=== PATIENT | male | born 1975 | race African-American/Black ===

== ENCOUNTER 2023-03-21 15:35 | Inpatient (IN) | payer OTHER ==
[2023-03-21 16:46] VITALS: BMI 20.9
[2023-03-21] MEDS ORDERED: IBUPROFEN 600 MG TABLET (FP) PO PRN (19:54)
[2023-03-21] MEDS ORDERED: NICOTINE 10 MG CARTRIDGE (INHALER) IH PRN (19:54)
[2023-03-21] MEDS ORDERED: IBUPROFEN 400 MG TABLET (FP) PO PRN (19:54)
[2023-03-21] MEDS ORDERED: NALOXONE HCL 0.4 MG/ML VIAL IM PRN (19:54)
[2023-03-21] MEDS ORDERED: MAG HYDROX/AL HYDROX/SIMETH 30 ML UNIT-DOSE CUP PO PRN (19:54)
[2023-03-21] MEDS ORDERED: BENZONATATE 200 MG CAPSULE PO PRN (19:54)
[2023-03-21] MEDS ORDERED: LOPERAMIDE HCL 2 MG CAPSULE PO PRN (19:54)
[2023-03-21] MEDS ORDERED: NALOXONE HCL (KLOXXADO) 8 MG SPRAY NS PRN (19:54)
[2023-03-21] MEDS ORDERED: guaiFENesin 600 MG TABLET.ER (FP) PO PRN (19:54)
[2023-03-21] MEDS ORDERED: TUBERCULIN PPD 5 TU/0.1ML VIAL ID ONE (20:49)
[2023-03-21] MEDS: COLLOIDAL OATMEAL 1 BAR EACH TP PRN (20:51)
[2023-03-21] MEDS: THIAMINE HCL 100 MG TABLET (FP) PO SCH (21:17)
[2023-03-21] MEDS: MELATONIN 5 MG TABLETS PO SCH (21:17)
[2023-03-22] MEDS: PRENATAL VITAMINS W/ FOLIC ACID TABLET (FP) PO SCH (10:51)
[2023-03-22 11:09] LABS: HEMATOCRIT 39.9 % (35.4-49); HEMOGLOBIN 13.4 GM/dL (11.7-16.9); MCH 31.1 pg (25.7-33.7); MCHC 33.5 g/dl (32.0-35.9); MEAN CELL VOLUME 92.9 fl (80-96); PLATELET COUNT 198 10^3/uL (134-434); RDW 13.8 % (11.9-15.9)
[2023-03-22 11:12] LABS: URINE APPEARANCE CLEAR; URINE BILIRUBIN NEGATIVE (NEGATIVE); URINE COLOR YELLOW; URINE GLUCOSE (UA) NEGATIVE (NEGATIVE); URINE KETONE NEGATIVE (NEGATIVE); URINE LEUK ESTERASE NEGATIVE (NEGATIVE); URINE NITRITE NEGATIVE (NEGATIVE); URINE PROTEIN NEGATIVE (NEGATIVE); URINE UROBILINOGEN 0.2 mg/dL (0.2-1.0)
[2023-03-22 11:13] LABS: POTASSIUM 4.1 mmol/L (3.5-5.1)
[2023-03-22 11:18] LABS: CALCIUM 9.1 mg/dL (8.5-10.1)
[2023-03-22 11:19] LABS: ALBUMIN 3.6 g/dl (3.4-5.0); BLOOD UREA NITROGEN 12.2 mg/dL (7-18)
[2023-03-22 11:24] LABS: BILIRUBIN,TOTAL 1.6 mg/dL (0.2-1); TOT PROT 6.3 g/dl (6.4-8.2)
[2023-03-22 11:58] LABS: SYPHILIS W/ RPR CONF NON-REACTIVE (NONREACTIVE)
[2023-03-22] MEDS: MELATONIN 5 MG TABLETS PO SCH (21:22)
[2023-03-22] MEDS: THIAMINE HCL 100 MG TABLET (FP) PO SCH (21:22)
[2023-03-23] MEDS: cloNIDine HCL 0.1 MG TABLET PO PRN (06:13)
[2023-03-23] MEDS ORDERED: LORATADINE 10 MG TABLET PO PRN (09:44)
[2023-03-23] MEDS: PRENATAL VITAMINS W/ FOLIC ACID TABLET (FP) PO SCH (10:13)
[2023-03-23] MEDS: KETOCONAZOLE 2 % SHAMPOO 120 ML BOTTLE TP SCH (10:46)
[2023-03-23] MEDS: COLLOIDAL OATMEAL 1 BAR EACH TP PRN (10:50)
[2023-03-23] MEDS: MAGNESIUM HYDROX 2400MG/30ML ORAL SUSPENSION 30 ML CUP PO PRN (16:21)
[2023-03-23] MEDS: THIAMINE HCL 100 MG TABLET (FP) PO SCH (21:22)
[2023-03-23] MEDS: MELATONIN 5 MG TABLETS PO SCH (21:23)
[2023-03-24] MEDS: PRENATAL VITAMINS W/ FOLIC ACID TABLET (FP) PO SCH (10:09)
[2023-03-24] MEDS: KETOCONAZOLE 2 % SHAMPOO 120 ML BOTTLE TP SCH (10:10)
[2023-03-24] MEDS: AMMONIUM LACTATE 12% LOTION 225 GM BOTTLE TP PRN (10:11)
[2023-03-24] MEDS: MAGNESIUM HYDROX 2400MG/30ML ORAL SUSPENSION 30 ML CUP PO PRN (10:13)
[2023-03-24] MEDS: THIAMINE HCL 100 MG TABLET (FP) PO SCH (21:16)
[2023-03-24] MEDS: MELATONIN 5 MG TABLETS PO SCH (21:16)
[2023-03-25] MEDS: PRENATAL VITAMINS W/ FOLIC ACID TABLET (FP) PO SCH (09:51)
[2023-03-25] MEDS: KETOCONAZOLE 2 % SHAMPOO 120 ML BOTTLE TP SCH (09:51)
[2023-03-25] MEDS: AMMONIUM LACTATE 12% LOTION 225 GM BOTTLE TP PRN (09:52)
[2023-03-25] MEDS: POLYETHYLENE GLYCOL (HEALTHYLAX) 3350 17 GM PACKET PO PRN (09:55)
[2023-03-25] MEDS: THIAMINE HCL 100 MG TABLET (FP) PO SCH (21:19)
[2023-03-25] MEDS: MELATONIN 5 MG TABLETS PO SCH (21:19)
[2023-03-25] MEDS: ACETAMINOPHEN 325 MG TABLET (FP) PO PRN (21:20)
[2023-03-26] MEDS: cloNIDine HCL 0.1 MG TABLET PO PRN (07:10)
[2023-03-26] MEDS: PRENATAL VITAMINS W/ FOLIC ACID TABLET (FP) PO SCH (09:43)
[2023-03-26] MEDS: KETOCONAZOLE 2 % SHAMPOO 120 ML BOTTLE TP SCH (09:44)
[2023-03-26] MEDS: POLYETHYLENE GLYCOL (HEALTHYLAX) 3350 17 GM PACKET PO PRN (14:17)
[2023-03-26] MEDS: ACETAMINOPHEN 325 MG TABLET (FP) PO PRN (16:13)
[2023-03-26] MEDS: hydrOXYzine PAMOATE 25 MG CAPSULE (FP) PO PRN (16:17)
[2023-03-26] MEDS: MELATONIN 5 MG TABLETS PO SCH (21:23)
[2023-03-26] MEDS: THIAMINE HCL 100 MG TABLET (FP) PO SCH (21:23)
[2023-03-27] MEDS: PRENATAL VITAMINS W/ FOLIC ACID TABLET (FP) PO SCH (09:56)
[2023-03-27] MEDS: POLYETHYLENE GLYCOL (HEALTHYLAX) 3350 17 GM PACKET PO PRN (09:57)
[2023-03-27] MEDS: KETOCONAZOLE 2 % SHAMPOO 120 ML BOTTLE TP SCH (09:58)
[2023-03-27] MEDS ORDERED: LIDOCAINE 5% TOPICAL PATCH TP SCH (15:30)
[2023-03-27] MEDS: LIDOCAINE PATCH REMOVAL MC SCH (21:16)
[2023-03-27] MEDS: THIAMINE HCL 100 MG TABLET (FP) PO SCH (21:16)
[2023-03-27] MEDS: MELATONIN 5 MG TABLETS PO SCH (21:16)
[2023-03-28] MEDS: KETOCONAZOLE 2 % SHAMPOO 120 ML BOTTLE TP SCH (10:18)
[2023-03-28] MEDS: PRENATAL VITAMINS W/ FOLIC ACID TABLET (FP) PO SCH (10:18)
[2023-03-28] MEDS: POLYETHYLENE GLYCOL (HEALTHYLAX) 3350 17 GM PACKET PO PRN (10:19)
[2023-03-28] MEDS: COLLOIDAL OATMEAL 1 BAR EACH TP PRN (12:42)
[2023-03-28] MEDS: LIDOCAINE PATCH REMOVAL MC SCH (21:10)
[2023-03-28] MEDS: THIAMINE HCL 100 MG TABLET (FP) PO SCH (21:10)
[2023-03-28] MEDS: MELATONIN 5 MG TABLETS PO SCH (21:10)
[2023-03-29] MEDS: PRENATAL VITAMINS W/ FOLIC ACID TABLET (FP) PO SCH (09:35)
[2023-03-29] MEDS: POLYETHYLENE GLYCOL (HEALTHYLAX) 3350 17 GM PACKET PO PRN (09:36)
[2023-03-29] MEDS: KETOCONAZOLE 2 % SHAMPOO 120 ML BOTTLE TP SCH (09:37)
[2023-03-29] MEDS: THIAMINE HCL 100 MG TABLET (FP) PO SCH (21:07)
[2023-03-29] MEDS: MELATONIN 5 MG TABLETS PO SCH (21:07)
[2023-03-29] MEDS: LIDOCAINE PATCH REMOVAL MC SCH (21:07)
[2023-03-29] MEDS: hydrOXYzine PAMOATE 25 MG CAPSULE (FP) PO PRN (21:07)
[2023-03-30] MEDS: PRENATAL VITAMINS W/ FOLIC ACID TABLET (FP) PO SCH (10:11)
[2023-03-30] MEDS: KETOCONAZOLE 2 % SHAMPOO 120 ML BOTTLE TP SCH (10:12)
[2023-03-30] MEDS: POLYETHYLENE GLYCOL (HEALTHYLAX) 3350 17 GM PACKET PO PRN (10:15)
[2023-03-30] MEDS: AMMONIUM LACTATE 12% LOTION 225 GM BOTTLE TP PRN (10:16)
[2023-03-30] MEDS: THIAMINE HCL 100 MG TABLET (FP) PO SCH (21:13)
[2023-03-30] MEDS: LIDOCAINE PATCH REMOVAL MC SCH (21:13)
[2023-03-30] MEDS: MELATONIN 5 MG TABLETS PO SCH (21:13)
[2023-03-31] MEDS: ACETAMINOPHEN 325 MG TABLET (FP) PO PRN (05:44)
[2023-03-31] MEDS: KETOCONAZOLE 2 % SHAMPOO 120 ML BOTTLE TP SCH (09:48)
[2023-03-31] MEDS: PRENATAL VITAMINS W/ FOLIC ACID TABLET (FP) PO SCH (09:48)
[2023-03-31] MEDS: POLYETHYLENE GLYCOL (HEALTHYLAX) 3350 17 GM PACKET PO PRN (09:48)
[2023-03-31] MEDS: THIAMINE HCL 100 MG TABLET (FP) PO SCH (21:18)
[2023-03-31] MEDS: MELATONIN 5 MG TABLETS PO SCH (21:18)
[2023-03-31] MEDS: LIDOCAINE PATCH REMOVAL MC SCH (21:19)
[2023-04-01] MEDS: KETOCONAZOLE 2 % SHAMPOO 120 ML BOTTLE TP SCH (09:43)
[2023-04-01] MEDS: PRENATAL VITAMINS W/ FOLIC ACID TABLET (FP) PO SCH (09:43)
[2023-04-01] MEDS: POLYETHYLENE GLYCOL (HEALTHYLAX) 3350 17 GM PACKET PO PRN (09:44)
[2023-04-01] MEDS: LIDOCAINE PATCH REMOVAL MC SCH (21:10)
[2023-04-01] MEDS: THIAMINE HCL 100 MG TABLET (FP) PO SCH (21:10)
[2023-04-01] MEDS: MELATONIN 5 MG TABLETS PO SCH (21:11)
[2023-04-02] MEDS: PRENATAL VITAMINS W/ FOLIC ACID TABLET (FP) PO SCH (10:02)
[2023-04-02] MEDS: POLYETHYLENE GLYCOL (HEALTHYLAX) 3350 17 GM PACKET PO PRN (10:07)
[2023-04-02] MEDS: KETOCONAZOLE 2 % SHAMPOO 120 ML BOTTLE TP SCH (10:08)
[2023-04-02] MEDS: THIAMINE HCL 100 MG TABLET (FP) PO SCH (21:04)
[2023-04-02] MEDS: MELATONIN 5 MG TABLETS PO SCH (21:05)
[2023-04-02] MEDS: LIDOCAINE PATCH REMOVAL MC SCH (21:05)
[2023-04-03] MEDS: KETOCONAZOLE 2 % SHAMPOO 120 ML BOTTLE TP SCH (09:53)
[2023-04-03] MEDS: PRENATAL VITAMINS W/ FOLIC ACID TABLET (FP) PO SCH (09:53)
[2023-04-03] MEDS: POLYETHYLENE GLYCOL (HEALTHYLAX) 3350 17 GM PACKET PO PRN (09:53)
[2023-04-03] MEDS ORDERED: AZITHROMYCIN 250 MG TABLET PO ONE (10:59)
[2023-04-03] MEDS ORDERED: KETOCONAZOLE 2 % SHAMPOO 120 ML BOTTLE TP SCH (11:01)
[2023-04-03] MEDS: SODIUM CHLORIDE NASAL SPRAY 44 ML BOTTLE NS PRN ×3 (12:08→21:14)
[2023-04-03] MEDS: BENZOCAINE/MENTHOL (CHLORASEPTIC ) LOZENGE MM PRN ×2 (16:20→23:13)
[2023-04-03] MEDS: THIAMINE HCL 100 MG TABLET (FP) PO SCH (21:13)
[2023-04-03] MEDS: MELATONIN 5 MG TABLETS PO SCH (21:14)
[2023-04-03] MEDS: LIDOCAINE PATCH REMOVAL MC SCH (21:14)
[2023-04-04] MEDS: cloNIDine HCL 0.1 MG TABLET PO PRN (05:57)
[2023-04-04] MEDS: BENZOCAINE/MENTHOL (CHLORASEPTIC ) LOZENGE MM PRN ×3 (05:58→19:52)
[2023-04-04] MEDS: SODIUM CHLORIDE NASAL SPRAY 44 ML BOTTLE NS PRN ×4 (05:59→21:24)
[2023-04-04] MEDS: PRENATAL VITAMINS W/ FOLIC ACID TABLET (FP) PO SCH (09:53)
[2023-04-04] MEDS: AZITHROMYCIN 250 MG TABLET PO SCH (09:53)
[2023-04-04] MEDS: POLYETHYLENE GLYCOL (HEALTHYLAX) 3350 17 GM PACKET PO PRN (09:55)
[2023-04-04 12:04] LABS: BASO % 0.7 % (0-2.0); EOS % 1.6 % (0-4.5); HEMATOCRIT 40.4 % (35.4-49); HEMOGLOBIN 13.6 GM/dL (11.7-16.9); LYMPH % 27.1 % (8-40); MCH 31.1 pg (25.7-33.7); MCHC 33.7 g/dl (32.0-35.9); MEAN CELL VOLUME 92.5 fl (80-96); MEAN PLT VOLUME 9.5 fl (7.5-11.1); MONO % 13.4 % (3.8-10.2); NEUT % 57.2 % (42.8-82.8); PLATELET COUNT 185 10^3/uL (134-434); RBC 4.37 M/mm3 (4.00-5.60); RDW 13.5 % (11.9-15.9); WHITE BLOOD COUNT 4.5 K/mm3 (4.0-10.0)
[2023-04-04 19:08] LABS: HIV INTERPRETATION NEGATIVE (NEGATIVE)
[2023-04-04] MEDS: THIAMINE HCL 100 MG TABLET (FP) PO SCH (21:22)
[2023-04-04] MEDS: LIDOCAINE PATCH REMOVAL MC SCH (21:22)
[2023-04-04] MEDS: MELATONIN 5 MG TABLETS PO SCH (21:22)
[2023-04-05] MEDS: SODIUM CHLORIDE NASAL SPRAY 44 ML BOTTLE NS PRN ×2 (06:38→21:05)
[2023-04-05] MEDS: BENZOCAINE/MENTHOL (CHLORASEPTIC ) LOZENGE MM PRN ×2 (06:41→21:06)
[2023-04-05] MEDS: COLLOIDAL OATMEAL 1 BAR EACH TP PRN (06:46)
[2023-04-05] MEDS: AZITHROMYCIN 250 MG TABLET PO SCH (09:52)
[2023-04-05] MEDS: PRENATAL VITAMINS W/ FOLIC ACID TABLET (FP) PO SCH (09:52)
[2023-04-05] MEDS: POLYETHYLENE GLYCOL (HEALTHYLAX) 3350 17 GM PACKET PO PRN (09:53)
[2023-04-05] MEDS: THIAMINE HCL 100 MG TABLET (FP) PO SCH (21:05)
[2023-04-05] MEDS: LIDOCAINE PATCH REMOVAL MC SCH (21:05)
[2023-04-05] MEDS: MELATONIN 5 MG TABLETS PO SCH (21:05)
[2023-04-06] MEDS: SODIUM CHLORIDE NASAL SPRAY 44 ML BOTTLE NS PRN ×3 (06:25→21:26)
[2023-04-06] MEDS: BENZOCAINE/MENTHOL (CHLORASEPTIC ) LOZENGE MM PRN ×3 (06:26→21:26)
[2023-04-06] MEDS: AZITHROMYCIN 250 MG TABLET PO SCH (09:45)
[2023-04-06] MEDS: PRENATAL VITAMINS W/ FOLIC ACID TABLET (FP) PO SCH (09:45)
[2023-04-06] MEDS: POLYETHYLENE GLYCOL (HEALTHYLAX) 3350 17 GM PACKET PO PRN (09:46)
[2023-04-06] MEDS: THIAMINE HCL 100 MG TABLET (FP) PO SCH (21:25)
[2023-04-06] MEDS: MELATONIN 5 MG TABLETS PO SCH (21:25)
[2023-04-06] MEDS: LIDOCAINE PATCH REMOVAL MC SCH (21:25)
[2023-04-07] MEDS: PRENATAL VITAMINS W/ FOLIC ACID TABLET (FP) PO SCH (09:53)
[2023-04-07] MEDS: SODIUM CHLORIDE NASAL SPRAY 44 ML BOTTLE NS PRN ×2 (09:55→21:03)
[2023-04-07] MEDS: AZITHROMYCIN 250 MG TABLET PO SCH (09:55)
[2023-04-07] MEDS: POLYETHYLENE GLYCOL (HEALTHYLAX) 3350 17 GM PACKET PO PRN (09:55)
[2023-04-07] MEDS: BENZOCAINE/MENTHOL (CHLORASEPTIC ) LOZENGE MM PRN ×2 (09:56→21:05)
[2023-04-07] MEDS: hydrOXYzine PAMOATE 25 MG CAPSULE (FP) PO PRN (13:46)
[2023-04-07] MEDS: HYDROCORTISONE 1% TOPICAL OINT 30 GM TUBE TP PRN ×2 (14:59→21:04)
[2023-04-07] MEDS: THIAMINE HCL 100 MG TABLET (FP) PO SCH (21:03)
[2023-04-07] MEDS: MELATONIN 5 MG TABLETS PO SCH (21:05)
[2023-04-07] MEDS: LIDOCAINE PATCH REMOVAL MC SCH (21:05)
[2023-04-08] MEDS: hydrOXYzine PAMOATE 25 MG CAPSULE (FP) PO PRN (08:24)
[2023-04-08] MEDS ORDERED: predniSONE 20 MG TABLET (UD) PO ONE (09:17)
[2023-04-08] MEDS: PRENATAL VITAMINS W/ FOLIC ACID TABLET (FP) PO SCH (10:26)
[2023-04-08] MEDS: POLYETHYLENE GLYCOL (HEALTHYLAX) 3350 17 GM PACKET PO PRN (10:27)
[2023-04-08] MEDS: SODIUM CHLORIDE NASAL SPRAY 44 ML BOTTLE NS PRN ×2 (10:27→21:11)
[2023-04-08] MEDS: BENZOCAINE/MENTHOL (CHLORASEPTIC ) LOZENGE MM PRN (10:30)
[2023-04-08] MEDS: HYDROCORTISONE 1% TOPICAL OINT 30 GM TUBE TP PRN ×2 (10:31→21:10)
[2023-04-08] MEDS: THIAMINE HCL 100 MG TABLET (FP) PO SCH (21:09)
[2023-04-08] MEDS: LIDOCAINE PATCH REMOVAL MC SCH (21:09)
[2023-04-08] MEDS: MELATONIN 5 MG TABLETS PO SCH (22:40)
[2023-04-09] MEDS: SODIUM CHLORIDE NASAL SPRAY 44 ML BOTTLE NS PRN (06:31)
[2023-04-09] MEDS: HYDROCORTISONE 1% TOPICAL OINT 30 GM TUBE TP PRN ×2 (09:46→21:21)
[2023-04-09] MEDS: POLYETHYLENE GLYCOL (HEALTHYLAX) 3350 17 GM PACKET PO PRN (09:46)
[2023-04-09] MEDS: PRENATAL VITAMINS W/ FOLIC ACID TABLET (FP) PO SCH (09:46)
[2023-04-09] MEDS ORDERED: predniSONE 10 MG TABLET (UD) PO ONE (10:00)
[2023-04-09] MEDS: THIAMINE HCL 100 MG TABLET (FP) PO SCH (21:20)
[2023-04-09] MEDS: MELATONIN 5 MG TABLETS PO SCH (21:20)
[2023-04-09] MEDS: LIDOCAINE PATCH REMOVAL MC SCH (21:20)
[2023-04-10] MEDS: SODIUM CHLORIDE NASAL SPRAY 44 ML BOTTLE NS PRN ×2 (06:02→10:32)
[2023-04-10] MEDS: COLLOIDAL OATMEAL 1 BAR EACH TP PRN (06:03)
[2023-04-10] MEDS: BENZOCAINE/MENTHOL (CHLORASEPTIC ) LOZENGE MM PRN (06:03)
[2023-04-10] MEDS ORDERED: predniSONE 10 MG TABLET (UD) PO ONE (10:00)
[2023-04-10] MEDS: PRENATAL VITAMINS W/ FOLIC ACID TABLET (FP) PO SCH (10:30)
[2023-04-10] MEDS: POLYETHYLENE GLYCOL (HEALTHYLAX) 3350 17 GM PACKET PO PRN (10:31)
[2023-04-10] MEDS: KETOCONAZOLE 2 % SHAMPOO 120 ML BOTTLE TP PRN (10:35)
[2023-04-10] MEDS: AMMONIUM LACTATE 12% LOTION 225 GM BOTTLE TP PRN (10:36)
[2023-04-10] MEDS: LIDOCAINE PATCH REMOVAL MC SCH (21:25)
[2023-04-10] MEDS: MELATONIN 5 MG TABLETS PO SCH (21:25)
[2023-04-10] MEDS: THIAMINE HCL 100 MG TABLET (FP) PO SCH (21:25)
[2023-04-11] MEDS ORDERED: predniSONE 5 MG TABLET (UD) PO ONE (10:00)
[2023-04-11] MEDS: SODIUM CHLORIDE NASAL SPRAY 44 ML BOTTLE NS PRN ×2 (10:39→21:04)
[2023-04-11] MEDS: PRENATAL VITAMINS W/ FOLIC ACID TABLET (FP) PO SCH (10:39)
[2023-04-11] MEDS: POLYETHYLENE GLYCOL (HEALTHYLAX) 3350 17 GM PACKET PO PRN (10:40)
[2023-04-11] MEDS: MELATONIN 5 MG TABLETS PO SCH (21:01)
[2023-04-11] MEDS: THIAMINE HCL 100 MG TABLET (FP) PO SCH (21:01)
[2023-04-11] MEDS: AMMONIUM LACTATE 12% LOTION 225 GM BOTTLE TP PRN (21:04)
[2023-04-11] MEDS: KETOCONAZOLE 2 % SHAMPOO 120 ML BOTTLE TP PRN (21:05)
[2023-04-11] MEDS: LIDOCAINE PATCH REMOVAL MC SCH (21:33)
[2023-04-12] MEDS: PRENATAL VITAMINS W/ FOLIC ACID TABLET (FP) PO SCH (09:35)
[2023-04-12] MEDS: KETOCONAZOLE 2 % SHAMPOO 120 ML BOTTLE TP PRN (09:36)
[2023-04-12] MEDS: POLYETHYLENE GLYCOL (HEALTHYLAX) 3350 17 GM PACKET PO PRN (09:38)
[2023-04-12] MEDS: SODIUM CHLORIDE NASAL SPRAY 44 ML BOTTLE NS PRN ×2 (09:38→21:23)
[2023-04-12] MEDS: COLLOIDAL OATMEAL 1 BAR EACH TP PRN (10:23)
[2023-04-12] MEDS: HYDROCORTISONE 1% TOPICAL OINT 30 GM TUBE TP PRN (10:38)
[2023-04-12] MEDS: THIAMINE HCL 100 MG TABLET (FP) PO SCH (21:22)
[2023-04-12] MEDS: MELATONIN 5 MG TABLETS PO SCH (21:22)
[2023-04-12] MEDS: LIDOCAINE PATCH REMOVAL MC SCH (21:23)
[2023-04-13] MEDS: KETOCONAZOLE 2 % SHAMPOO 120 ML BOTTLE TP PRN (06:04)
[2023-04-13] MEDS: HYDROCORTISONE 1% TOPICAL OINT 30 GM TUBE TP PRN ×2 (10:19→21:11)
[2023-04-13] MEDS: PRENATAL VITAMINS W/ FOLIC ACID TABLET (FP) PO SCH (10:19)
[2023-04-13] MEDS: THIAMINE HCL 100 MG TABLET (FP) PO SCH (21:11)
[2023-04-13] MEDS: MELATONIN 5 MG TABLETS PO SCH (21:11)
[2023-04-13] MEDS: LIDOCAINE PATCH REMOVAL MC SCH (21:12)
[2023-04-14] MEDS: HYDROCORTISONE 1% TOPICAL OINT 30 GM TUBE TP PRN ×2 (06:31→21:26)
[2023-04-14] MEDS: PRENATAL VITAMINS W/ FOLIC ACID TABLET (FP) PO SCH (09:46)
[2023-04-14] MEDS: POLYETHYLENE GLYCOL (HEALTHYLAX) 3350 17 GM PACKET PO PRN (09:47)
[2023-04-14] MEDS: MELATONIN 5 MG TABLETS PO SCH (21:25)
[2023-04-14] MEDS: LIDOCAINE PATCH REMOVAL MC SCH (21:25)
[2023-04-14] MEDS: THIAMINE HCL 100 MG TABLET (FP) PO SCH (21:26)
[2023-04-15] MEDS: KETOCONAZOLE 2 % SHAMPOO 120 ML BOTTLE TP PRN (06:06)
[2023-04-15] MEDS: PRENATAL VITAMINS W/ FOLIC ACID TABLET (FP) PO SCH (10:02)
[2023-04-15] MEDS: POLYETHYLENE GLYCOL (HEALTHYLAX) 3350 17 GM PACKET PO PRN (10:06)
[2023-04-15] MEDS: HYDROCORTISONE 1% TOPICAL OINT 30 GM TUBE TP PRN (10:06)
[2023-04-15] MEDS: MELATONIN 5 MG TABLETS PO SCH (21:01)
[2023-04-15] MEDS: THIAMINE HCL 100 MG TABLET (FP) PO SCH (21:01)
[2023-04-15] MEDS: LIDOCAINE PATCH REMOVAL MC SCH (21:02)
[2023-04-16] MEDS: COLLOIDAL OATMEAL 1 BAR EACH TP PRN (05:57)
[2023-04-16] MEDS: KETOCONAZOLE 2 % SHAMPOO 120 ML BOTTLE TP PRN (05:58)
[2023-04-16] MEDS: AMMONIUM LACTATE 12% LOTION 225 GM BOTTLE TP PRN (05:58)
[2023-04-16] MEDS: PRENATAL VITAMINS W/ FOLIC ACID TABLET (FP) PO SCH (09:24)
[2023-04-16] MEDS: MELATONIN 5 MG TABLETS PO SCH (21:04)
[2023-04-16] MEDS: LIDOCAINE PATCH REMOVAL MC SCH (21:04)
[2023-04-16] MEDS: THIAMINE HCL 100 MG TABLET (FP) PO SCH (21:04)
[2023-04-17] MEDS: KETOCONAZOLE 2 % SHAMPOO 120 ML BOTTLE TP PRN (05:59)
[2023-04-17] MEDS: HYDROCORTISONE 1% TOPICAL OINT 30 GM TUBE TP PRN ×2 (06:00→21:10)
[2023-04-17 06:43] VITALS: RESP 18
[2023-04-17] MEDS: PRENATAL VITAMINS W/ FOLIC ACID TABLET (FP) PO SCH (10:53)
[2023-04-17] MEDS: MELATONIN 5 MG TABLETS PO SCH (21:08)
[2023-04-17] MEDS: THIAMINE HCL 100 MG TABLET (FP) PO SCH (21:08)
[2023-04-17] MEDS: LIDOCAINE PATCH REMOVAL MC SCH (21:47)
[2023-04-18] MEDS: POLYETHYLENE GLYCOL (HEALTHYLAX) 3350 17 GM PACKET PO PRN (10:03)
[2023-04-18] MEDS: KETOCONAZOLE 2 % SHAMPOO 120 ML BOTTLE TP PRN (10:04)
[2023-04-18] MEDS: HYDROCORTISONE 1% TOPICAL OINT 30 GM TUBE TP PRN (10:05)
[2023-04-18] MEDS: PRENATAL VITAMINS W/ FOLIC ACID TABLET (FP) PO SCH (10:07)
[2023-04-18] MEDS: MELATONIN 5 MG TABLETS PO SCH (21:02)
[2023-04-18] MEDS: THIAMINE HCL 100 MG TABLET (FP) PO SCH (21:02)
[2023-04-18] MEDS: LIDOCAINE PATCH REMOVAL MC SCH (21:03)
[2023-04-19 06:40] VITALS: TEMP 97.8
[2023-04-19] MEDS: COLLOIDAL OATMEAL 1 BAR EACH TP PRN (06:56)
[2023-04-19] MEDS: KETOCONAZOLE 2 % SHAMPOO 120 ML BOTTLE TP PRN ×2 (06:57→21:28)
[2023-04-19] MEDS: PRENATAL VITAMINS W/ FOLIC ACID TABLET (FP) PO SCH (09:54)
[2023-04-19] MEDS: POLYETHYLENE GLYCOL (HEALTHYLAX) 3350 17 GM PACKET PO PRN (09:55)
[2023-04-19] MEDS: HYDROCORTISONE 1% TOPICAL OINT 30 GM TUBE TP PRN (09:56)
[2023-04-19] MEDS: MELATONIN 5 MG TABLETS PO SCH (21:27)
[2023-04-19] MEDS: THIAMINE HCL 100 MG TABLET (FP) PO SCH (21:27)
[2023-04-19] MEDS: LIDOCAINE PATCH REMOVAL MC SCH (21:27)
[2023-04-20 07:02] VITALS: BP 147/95; PULSE 60
== END 2023-04-20 10:15 | disposition home or self-care (01) | DRG 772 ==
LOC: YASAS 15:35 → Y6N 19:46 → Y3W 19:49
PROVIDERS: ADMIT Allergy & Immunology; ATTEND Psychiatry & Neurology Pain Medicine
PROC: HZ42ZZZ Group Counseling for Substance Abuse Treatment, Cognitive-Behavioral (ICD-10-PCS; principal; 2023-03-21)
DX: F14.20 Cocaine dependence, uncomplicated (principal); F12.20 Cannabis dependence, uncomplicated; F17.210 Nicotine dependence, cigarettes, uncomplicated; F19.282 Other psychoactive substance dependence with psychoactive substance-induced sleep disorder; F41.9 Anxiety disorder, unspecified; I10 Essential (primary) hypertension; J30.2 Other seasonal allergic rhinitis; J02.9 Acute pharyngitis, unspecified; L25.9 Unspecified contact dermatitis, unspecified cause; M54.50 Low back pain, unspecified; G89.29 Other chronic pain; Z86.69 Personal history of other diseases of the nervous system and sense organs
CPT/HCPCS: 36415; 80053; 81003; 85025; 85027; 86780; 86803; 87389; 87811; C9803-CS; U0003; U0005